=== PATIENT | male | born 1950 | race Caucasian/White ===

== ENCOUNTER → 2016-10-31 | Outpatient (CLI) | payer OTHER ==
[~2016-10-31] MED LIST: DEXAMETHASONE4 MG PO; FAMOTIDINE PO; FOLIC ACID1 MG PO; LISINOPRIL5 MG PO
--- NOTE | ~2016-10-31 | XA77 ---
[facility] A Service of [facility] & [facility] RADIOLOGY TEXT RESULTS PATIENT: JEM EVANS LOCATION: [facility] : 54 UNIT #: [id number] AGE: [address]: Carine Hunt MD SEX: M ORDER DR: [id number] [facility] [address] [place], [place] [address] [id number] O MR#: [id number] Acc #: [id number] NAME: JEM EVANS. : 1950 SEX: M STUDY DATE/TIME: 10/31/2016 8:23 UNIT: [facility] ROOM: STUDY DESCRIPTION: XA CVC Port Devive Check Attending Physician: Carine Hunt M.D., Ph.D. Ordering Physician: Carine Hunt M.D., Ph.D. Primary Care Physician: Francisco Lee M.D. MEDICAL IMAGING REPORT This report is preliminary unless electronic signature is present EXAM Agnieszka-Cath injection and device check, 10/31/2016 HISTORY Recent malfunction of Agnieszka-Cath. PROCEDURE The catheter was accessed in a standard sterile fashion. Contrast was injected under fluoroscopic guidance. Two angiographic runs were performed. Total fluoro time 0.3 minutes. FINDINGS The catheter is intact. There are no cracks or leaks and there is no evidence of fibrin sheath or other malfunction. IMPRESSION Normal Agnieszka-Cath device check. No abnormality is seen. Dictated by... Marcelo Ozuna M.D. THIS IS AN ELECTRONICALLY VERIFIED REPORT Marcelo Ozuna M.D. at 11/01/2016 3:37 PM NICO/lincoln TD: 11/01/2016 02:00 JOB #: [id number] MEDICAL IMAGING REPORT COPY
== END | disposition home or self-care (01) ==
LOC: CIVR 07:54
DX: Z45.2 Encounter for adjustment and management of vascular access device (principal); C34.80 Malignant neoplasm of overlapping sites of unspecified bronchus and lung; C79.31 Secondary malignant neoplasm of brain; C34.12 Malignant neoplasm of upper lobe, left bronchus or lung; C78.7 Secondary malignant neoplasm of liver and intrahepatic bile duct; J44.9 Chronic obstructive pulmonary disease, unspecified; Z79.899 Other long term (current) drug therapy; Z87.891 Personal history of nicotine dependence
CPT/HCPCS: J1642; Q9967

== ENCOUNTER → 2016-12-26 | Outpatient (CLI) | payer OTHER ==
--- NOTE | ~2016-12-26 | CT55 ---
[facility] A Service of [facility] & [facility] RADIOLOGY TEXT RESULTS PATIENT: JEM EVANS LOCATION: [facility] : 54 UNIT #: [id number] AGE: [address]: Carnie Hunt MD SEX: M ORDER DR: [id number] [facility] [address] [place], [place] [address] [id number] O MR#: [id number] Acc #: [id number] NAME: JEM EVANS. : 1950 SEX: M STUDY DATE/TIME: 12/26/2016 8:47 [facility] ROOM: STUDY DESCRIPTION: CT Chest W Con Attending Physician: Carine Hunt M.D., Ph.D. Referring Physician: Carine Hunt M.D., Ph.D. Ordering Physician: Carine Hunt M.D., Ph.D. Primary Care Physician: Francisco Lee M.D. MEDICAL IMAGING REPORT This report is preliminary unless electronic signature is present EXAM CT chest INDICATION Lung cancer. Malignant neoplasm of the left upper lobe. Restaging. TECHNIQUE CT of the chest with IV contrast (100 mL Isovue-370 IV contrast). Coronal and sagittal reconstructions were obtained. This CT exam was performed with one or more of the following radiation dose reduction techniques: automatic exposure control, adjustment of mA and/or kV according to patient size, and iterative reconstruction. COMPARISON CT chest dated 10/04/2016 FINDINGS There is a large low-attenuation mass in the left upper lobe abutting the left hilum. This mass is fairly similar to the 10/04/2016 comparison. The mass measures 6.7 x 5.1 x 6.6 cm compared to 6.9 x 4.6 x 6.5 cm on the prior exam. This includes a left upper lobe bronchus. There are some small subcentimeter left hilar lymph nodes. No enlarged mediastinal nodes. There is some small satellite nodules in the left upper lobe as well as some interstitial thickening in the left upper lobe. These changes are similar to the prior exam. No new pulmonary opacities. There is a small paraspinal lymph node near the T10 vertebra measuring 1.4 x 1.0 cm compared to 1.7 x 1.1 cm. [facility] A Service of [facility] RADIOLOGY TEXT RESULTS PATIENT: JEM EVANS LOCATION: [facility] : 54 UNIT #: [id number] AGE: [address]: Carine Hunt MD SEX: M ORDER DR: Please refer to separately dictated report for details on the abdomen. No new osseous abnormalities. IMPRESSION 1. No evidence of disease progression. 2. The large left upper lobe mass is fairly similar to the 10/04/2016 exam. 3. Indeterminate nodule/lymph node along the right paraspinous soft tissues adjacent to T10 is unchanged from the prior exam. Dictated by... Jose Klein M.D. THIS IS AN ELECTRONICALLY VERIFIED REPORT Jose Klein M.D. at 12/26/2016 2:47 PM JONATHAN/farheen TD: 12/26/2016 14:42 JOB #: [id number] MEDICAL IMAGING REPORT Page 1 of 1 COPY
--- NOTE | ~2016-12-26 | CT5 ---
[facility] A Service of [facility] & [facility] RADIOLOGY TEXT RESULTS PATIENT: JEM EVANS LOCATION: [facility] : 52 UNIT #: [id number] AGE: [address]: Carine Hunt MD SEX: M ORDER DR: [id number] [facility] [address] [place], [place] [address] [id number] O MR#: [id number] Acc #: [id number] NAME: JEM EVANS. : 1950 SEX: M STUDY DATE/TIME: 12/26/2016 8:47 UNIT: [facility] ROOM: STUDY DESCRIPTION: CT Abdomen W Cont Attending Physician: Carine Hunt M.D., Ph.D. Referring Physician: Carine Hunt M.D., Ph.D. Ordering Physician: Carine Hunt M.D., Ph.D. Primary Care Physician: Francisco Lee M.D. MEDICAL IMAGING REPORT This report is preliminary unless electronic signature is present EXAM CT of the abdomen with contrast INDICATIONS Lung cancer. This exam is requested for surveillance for metastatic disease. Comparison is made to a prior exam from October 04, 2016. The, patient has had a history of metastatic disease to the liver. CT of the chest will be dictated separately. The CT exam was performed with one or more of the following radiation dose reduction techniques: automatic exposure control, adjustment of mA and/or kV according to patient size, and iterative reconstruction. Presumed hepatic metastatic lesion within the medial hepatic segment I do not think has significantly changed. It measures about 2.2 cm in size. No new lesions are identified. The spleen, stomach and proximal small bowel are within normal limits as are the adrenal glands and pancreas. Gallbladder appears normal. There is some atherosclerotic involvement to the abdominal aorta. Shotty retroperitoneal lymph nodes are unchanged. Review of bony windows does not demonstrates any aggressive osseous abnormalities. Retrocrural lymph node on the right at the level of T10 is stable when compared to the most recent CT measuring about 2.0 x 1.2 cm. It is probably not significantly changed when compared to June 2016. . IMPRESSION 1. Stable appearance to a medial hepatic segment lesion, as well as a retrocrural lymph node when compared to the exam from September. [facility] A Service of [facility] RADIOLOGY TEXT RESULTS PATIENT: JEM EVANS LOCATION: [facility] : 54 UNIT #: [id number] AGE: [address]: Carine Hunt MD SEX: M ORDER DR: 2016. No new lesions are identified. Dictated by... Rose Bruce M.D. THIS IS AN ELECTRONICALLY VERIFIED REPORT Rose Bruce M.D. at 12/26/2016 5:22 PM BLAZE/maria eugenia TD: 12/26/2016 14:42 JOB #: [id number] MEDICAL IMAGING REPORT Page 1 of 1 COPY
--- NOTE | ~2016-12-26 | CT69 ---
[facility] A Service of [facility] & [facility] RADIOLOGY TEXT RESULTS PATIENT: JEM EVANS LOCATION: [facility] : 54 UNIT #: [id number] AGE: [address]: Carine Hunt MD SEX: M ORDER DR: [id number] [facility] [address] [place], [place] [address] [id number] O MR#: [id number] Acc #: [id number] NAME: JEM EVANS : 1950 SEX: M STUDY DATE/TIME: 12/26/2016 8:47 UNIT: [facility] ROOM: STUDY DESCRIPTION: CT Head W Contrast Attending Physician: Carine Hunt M.D., Ph.D. Referring Physician: Carine Hunt M.D., Ph.D. Ordering Physician: Carine Hunt M.D., Ph.D. Primary Care Physician: Francisco Lee M.D. MEDICAL IMAGING REPORT This report is preliminary unless electronic signature is present EXAM CT brain with IV contrast media. HISTORY SUPPLIED Metastatic lung cancer. Prior resection intracranially in January 2016. Follow up. TECHNIQUE Axial imaging of the brain was performed with an IV bolus of contrast media and compared directly to the patient's previous studies of July. This CT exam was performed with one or more of the following radiation dose reduction techniques: automatic exposure control, adjustment of mA and/or kV according to patient size, and iterative reconstruction. FINDINGS Postsurgical changes of occipital craniotomy are present. There is an area of encephalomalacia in the left cerebellar hemisphere which appears stable. There is no enhancement to suggest recurrent or residual tumor in the posterior fossa. Supratentorially the ventricular size and configuration is stable. No new or enhancing mass lesions are seen. No fluid collections are present. No mass effect or edema is seen. Bone windows are reviewed. The only pertinent finding is the occipital and suboccipital craniotomy. CONCLUSION Postsurgical changes in the posterior fossa with a occipital craniotomy, and an area of postoperative encephalomalacia in the left cerebellar hemisphere. No evidence of tumor recurrence or progression. CT of the brain appears stable compared with that of July. Dictated by... [facility] A Service of [facility] & [facility] RADIOLOGY TEXT RESULTS PATIENT: JEM EVANS LOCATION: [facility] : 54 UNIT #: [id number] AGE: [address]: Carine Hunt MD SEX: M ORDER DR: Jem Russell M.D. THIS IS AN ELECTRONICALLY VERIFIED REPORT Jem Russell M.D. at 12/28/2016 4:41 PM Shelley TD: 12/26/2016 19:06 JOB #: [id number] MEDICAL IMAGING REPORT Page 1 of 1 COPY
[2016-12-26 08:41] LABS: POC - CREATININE 0.74 mg/dL (0.64-1.27); POC - GFR >60.0 mL/min (>60)
== END | disposition home or self-care (01) ==
LOC: CCAT 07:56
PROVIDERS: Internal Medicine Hematology & Oncology
DX: C79.31 Secondary malignant neoplasm of brain (principal); C34.90 Malignant neoplasm of unspecified part of unspecified bronchus or lung; C34.12 Malignant neoplasm of upper lobe, left bronchus or lung; K76.89 Other specified diseases of liver; G93.89 Other specified disorders of brain
CPT/HCPCS: 70460; 71260; 74160; 82565; Q9967

== ENCOUNTER → 2017-03-07 | Outpatient (CLI) | payer OTHER ==
--- NOTE | ~2017-03-07 | CT69 ---
[facility] A Service of [facility] RADIOLOGY TEXT RESULTS PATIENT: JEM EVANS LOCATION: [facility] : 54 UNIT #: [id number] AGE: [address]: Carine Hunt MD SEX: M ORDER DR: [id number] [facility] [address] [place], [place] [address] [id number] O MR#: [id number] Acc #: [id number] NAME: JEM EVANS. : 1950 SEX: M STUDY DATE/TIME: 03/07/2017 7:42 UNIT: [facility] ROOM: STUDY DESCRIPTION: CT Head W Contrast Attending Physician: Carine Hunt M.D., Ph.D. Referring Physician: Carine Hunt M.D., Ph.D. Ordering Physician: Carine Hunt M.D., Ph.D. Primary Care Physician: Francisco Lee M.D. MEDICAL IMAGING REPORT This report is preliminary unless electronic signature is present EXAM CT head INDICATION Left upper lobe pulmonary malignancy. Observation for metastatic disease. Prior intracranial resection in January 2016. TECHNIQUE CT of the head with IV contrast (100 mL Isovue-370 IV contrast). This CT exam was performed with one or more of the following radiation dose reduction techniques: automatic exposure control, adjustment of mA and/or kV according to patient size, and iterative reconstruction. COMPARISON CT head, 12/26/2016 FINDINGS There is postsurgical change to the left cerebellum. No recurrent or residual mass is identified. There is no abnormal enhancing mass or lesion identified in the brain. There is no edema or mass lesion. Casanova matter differentiation is within normal. No extraaxial enhancement. Ventricles and basilar cisterns are normal in size and configuration. IMPRESSION No evidence of metastatic disease. Dictated by... Jose Klein M.D. THIS IS AN ELECTRONICALLY VERIFIED REPORT [facility] A Service [facility] RADIOLOGY TEXT RESULTS PATIENT: JEM EVANS LOCATION: [facility] : 54 UNIT #: [id number] AGE: [address]: Carine Hunt MD SEX: M ORDER DR: Jose Klein M.D. at 03/08/2017 3:09 PM JONATHAN/farheen TD: 03/08/2017 09:17 JOB #: [id number] MEDICAL IMAGING REPORT Page 1 of 1 COPY
--- NOTE | ~2017-03-07 | CT5 ---
[facility] A Service of [facility] & [facility] RADIOLOGY TEXT RESULTS PATIENT: JEM EVANS [facility] : 52 UNIT #: [id number] AGE: [address]: Carine Hunt MD SEX: M ORDER DR: [id number] [facility] [address] [place], [place] [address] [id number] O MR#: [id number] Acc #: [id number] NAME: JEM EVANS. : 1950 SEX: M STUDY DATE/TIME: 03/07/2017 7:37 UNIT: [facility] ROOM: STUDY DESCRIPTION: CT Abdomen W Cont Attending Physician: Carine Hunt M.D., Ph.D. Referring Physician: Carine Hunt M.D., Ph.D. Ordering Physician: Carine Hunt M.D., Ph.D. Primary Care Physician: Francisco Lee M.D. MEDICAL IMAGING REPORT This report is preliminary unless electronic signature is present EXAM CT abdomen INDICATION Left upper lobe pulmonary malignancy with metastatic disease. Restaging. Observation for disease progression. TECHNIQUE CT the abdomen utilizing mL Isovue-370 IV contrast. Coronal and sagittal reconstructions were obtained. This CT exam was performed with one or more of the following radiation dose reduction techniques: Automatic exposure control, adjustment of mA and/or kV according to patient size, and iterative reconstruction. COMPARISON Concurrent CT chest 03/07/[address] abdomen dated 12/26/2016. FINDINGS A small low-attenuation nodule adjacent to the T10 vertebral body measures 1.5 x 1.0 cm. 1.8 x 1.3 cm previously. This is an indeterminate nodule/node. Low-attenuation lesion in the periphery of the medial segment left hepatic lobe measures 2.3 cm, unchanged. There is a small hypervascular lesion in the lateral segment left hepatic lobe, also unchanged. No new hepatic lesions. The remainder of the solid abdominal organs are within normal. The adrenal glands are normal. The bowel is not dilated. There is a prominent diverticulum on the third portion of the duodenum. There are some left-sided colonic diverticula. No diverticulitis. The abdominal aorta is normal in caliber. [facility] A Service of [facility] & [facility] RADIOLOGY TEXT RESULTS PATIENT: JEM EVANS LOCATION: [facility] : 52 UNIT #: [id number] AGE: [address]: Carine Hunt MD SEX: M ORDER DR: No acute osseous abnormalities. IMPRESSION 1. No evidence of disease progression. There is a low-attenuation nodule in the liver that is unchanged from the prior studies. Dictated by... Jose Klein M.D. THIS IS AN ELECTRONICALLY VERIFIED REPORT Jose Klein M.D. at 03/08/2017 3:09 PM JONATHAN/jose TD: 03/08/2017 09:33 JOB #: [id number] MEDICAL IMAGING REPORT Page 1 of 1 COPY
--- NOTE | ~2017-03-07 | CT55 ---
[facility] A Service of [facility] RADIOLOGY TEXT RESULTS PATIENT: JEM EVANS LOCATION: [facility] : 54 UNIT #: [id number] AGE: [address]: Carine Hunt MD SEX: M ORDER DR: [id number] [facility] [address] [place] [address] [place], [place] [address] [id number] O MR#: [id number] Acc #: [id number] NAME: JEM EVANS. : 1950 SEX: M STUDY DATE/TIME: 03/07/2017 7:37 UNIT: [facility] ROOM: STUDY DESCRIPTION: CT Chest W Con Attending Physician: Carine Hunt M.D., Ph.D. Referring Physician: Carine Hunt M.D., Ph.D. Ordering Physician: Carine Hunt M.D., Ph.D. Primary Care Physician: Francisco Lee M.D. MEDICAL IMAGING REPORT This report is preliminary unless electronic signature is present EXAM CT chest INDICATIONS Left upper lobe pulmonary malignancy. Restaging. Observation for metastatic disease. TECHNIQUE CT of the chest utilizing 100 mL Isovue-370 IV contrast. Coronal and sagittal reconstructions were obtained. This CT exam was performed with one or more of the following radiation dose reduction techniques: automatic exposure control, adjustment of mA and/or kV according to patient size, and iterative reconstruction. COMPARISON CT chest dated 12/26/2016. FINDINGS The large left upper lobe mass measures this 8 x 5.9 cm, compared to 6.7 x 5.1 cm previously. The mass extends into the left suprahilar region. The left upper lobe bronchus is occluded. The mass abuts the medial margin of the left pleura. There is no obvious pleural invasion, pleural effusion, or pleural nodularity. There are a few prominent lymph nodes in the mediastinum, however these are subcentimeter in size. No pericardial or pleural effusion. Please refer to separately dictated report for details on the abdomen. IMPRESSION Increasing size of the left upper lobe mass. [facility] A Service of [facility] & [facility] RADIOLOGY TEXT RESULTS PATIENT: JEM EVANS LOCATION: [facility] : 54 UNIT #: [id number] AGE: [address]: Carine Hunt MD SEX: M ORDER DR: Dictated by... Jose Klein M.D. THIS IS AN ELECTRONICALLY VERIFIED REPORT Jose Klein M.D. at 03/08/2017 4:01 PM Arianna TD: 03/08/2017 09:10 JOB #: [id number] MEDICAL IMAGING REPORT Page 1 of 1 COPY
[2017-03-07 11:01] LABS: POC - GFR >60.0 mL/min (>60)
== END | disposition home or self-care (01) ==
LOC: CCAT 06:44
PROVIDERS: Internal Medicine Hematology & Oncology
DX: C34.82 Malignant neoplasm of overlapping sites of left bronchus and lung (principal); C34.80 Malignant neoplasm of overlapping sites of unspecified bronchus and lung; C79.31 Secondary malignant neoplasm of brain; K76.89 Other specified diseases of liver; R91.8 Other nonspecific abnormal finding of lung field
CPT/HCPCS: 70460; 71260; 74160; 82565; Q9967